=== PATIENT | female | born 1985 | race Caucasian/White ===

== ENCOUNTER 2017-11-03 22:29 | Emergency (ER) | payer SELFPAY ==
[2017-11-03 22:40] VITALS: RESP 16; O2SAT 100
[2017-11-03] MEDS ORDERED: Lidocaine 2% w Epi 1:100,000 Inj IJ STA (22:54)
--- NOTE | 2017-11-03 23:21 | C.PDOC ---
History Of Present Illness 32 year old female presents to the ER after she fell and hit her head while getting out of the elevator. Patient admits to ETOH use tonight. She reports having some nausea but denies LOC, vomiting, or other associated complaints. Time Seen by Provider: 11/03/17 22:48 Chief Complaint (Nursing): Syncope History Per: Patient History/Exam Limitations: no limitations Onset/Duration Of Symptoms: Hrs Current Symptoms Are (Timing): Still Present Recent travel outside of the [place]: No Past Medical History Reviewed: Historical Data, Nursing Documentation, Vital Signs Vital Signs: Last Vital Signs Temp 98.2 F 11/03/17 22:36 Pulse 86 11/03/17 22:36 Resp 16 11/03/17 22:36 BP 115/81 11/03/17 22:36 Pulse Ox 100 11/03/17 23:26 Family History: States: Unknown Family Hx - Social History Hx Alcohol Use: Yes Hx Substance Use: No Review Of Systems Except As Marked, All Systems Reviewed And Found Negative. Constitutional: Negative for: Fever, Chills Eyes: Negative for: Vision Change Gastrointestinal: Positive for: Nausea Musculoskeletal: Negative for: Neck Pain Skin: Positive for: Other (Laceration) Physical Exam - Physical Exam Appears: Non-toxic, Other (No acute intoxication) Skin: Warm, Dry Head: Normacephalic, Laceration (2-3cm to left parietal area with localized scalp hematoma) Eye(s): bilateral: Normal Inspection, PERRL, EOMI Oral Mucosa: Moist Neck: Normal, No Midline Cervical Tenderness, No Paracervical Tenderness, Supple Back: No Vertebral Tenderness, No Paraspinal Tenderness Extremity: Normal ROM (x4) Neurological/Psych: Oriented x3, Normal Speech Gait: Steady ED Course And Treatment O2 Sat by Pulse Oximetry: 100 (Room air) Pulse Ox Interpretation: Normal Laceration - Laceration Repair 2 Wound Length (In cm): 2 Description Of Wound: Linear, Clean Anesthesia: Lidocaine 2%, With Epi Wound Examination: Irrigated With Saline, No FB With Wound Exploration Wound Closure: [place] (2) Wound Complexity: Simple Progress - Re-Evaluation Re-evaluation Note: 11/03/17 23:26 SP LAC REPAIR. PT TOLERATED WELL. NEURO INTACT. CT PENDING 11/04/17 00:30 NEURO INTACT NAD. - Data Reviewed Data Reviewed: Diagnostic imaging Medical Decision Making Medical Decision Making: Plan: * CT head * Tylenol * Zofran Disposition Counseled Patient/Family Regarding: Studies Performed, Diagnosis, Need For Followup, Rx Given - Disposition Referrals: [facility] [Provider Group] YOUR,PMD [Other] Disposition: HOME/ ROUTINE Disposition Time: 00:30 Condition: IMPROVED Additional Instructions: RETURN 7 DAYS FOR STAPLE REMOVAL. TYLENOL, MOTRIN DIRECTED FOR PAIN. Prescriptions: Ondansetron [Zofran Odt] 4 mg PO TID PRN #9 odt PRN Reason: Nausea/Vomiting Instructions: Laceration Repair With Nell (DC), Minor Head Injury (DC) Forms: [employer] (Australian) - Clinical Impression Clinical Impression: Minor head injury, Scalp laceration - Scribe Statement The provider has reviewed the documentation as recorded by the Scribjoselyn Lucero All medical record entries made by the Scribe were at my direction and personally dictated by me. I have reviewed the chart and agree that the record accurately reflects my personal performance of the history, physical exam, medical decision making, and the department course for this patient. I have also personally directed, reviewed, and agree with the discharge instructions and disposition.
[2017-11-04 00:49] VITALS: BP 114/81; PULSE 79; TEMP 98.1
--- NOTE | 2017-11-04 07:43 | CT ---
Date of service: 11/03/2017 PROCEDURE: CT HEAD WITHOUT CONTRAST. HISTORY: trauma COMPARISON: None available. TECHNIQUE: Axial computed tomography images were obtained through the head/brain without intravenous contrast. Radiation dose: Total exam DLP = 715 mGy-cm. This CT exam was performed using one or more of the following dose reduction techniques: Automated exposure control, adjustment of the mA and/or kV according to patient size, and/or use of iterative reconstruction technique. FINDINGS: HEMORRHAGE: No intracranial hemorrhage. BRAIN: No mass effect or edema. No atrophy or chronic microvascular ischemic changes. VENTRICLES: Unremarkable. No hydrocephalus. CALVARIUM: Unremarkable. PARANASAL SINUSES: Unremarkable as visualized. No significant inflammatory changes. MASTOID AIR CELLS: Unremarkable as visualized. No inflammatory changes. OTHER FINDINGS: Left parietal scalp tessa with small hematoma. IMPRESSION: Left parietal scalp tessa with small hematoma. No acute intracranial abnormality. If symptoms persists, consider correlation with MRI. These findings were preliminarily reported at 12:15 a.m. on 11/04/[address] Rubin Clark from [facility].
== END 2017-11-04 00:49 | disposition home or self-care (01) ==
LOC: C.ER 22:29
DX: S01.01XA Laceration without foreign body of scalp, initial encounter (principal); W19.XXXA Unspecified fall, initial encounter
CPT/HCPCS: 12001; 70450; 82948; 96374; 96375; 99285; J1885; J2405

== ENCOUNTER 2018-07-05 19:29 | Inpatient (IN) | payer OTHER ==
[2018-07-05 20:05] VITALS: BMI 17.5
[2018-07-05] MEDS ORDERED: Sodium Chloride 0.9% 1,000 ML IV ONE (20:31)
--- NOTE | 2018-07-05 20:33 | C.PDOC ---
History Of Present Illness 72 year old female is referred to the ED by Dr. Lantigua and Dr Brizuela for evaluation of RUQ/epigastric abdominal pain associated with vomiting today. Patient had outpatient US today showing multiple gall stones with no obstruction and cholecystitis. Patient denies prior gallbladder surgery, fever, chills, diarrhea, CP, SOB, rash, dysuria, hematuria. Time Seen by Provider: 07/05/18 20:22 Chief Complaint (Nursing): Abdominal Pain History Per: Patient History/Exam Limitations: no limitations Onset/Duration Of Symptoms: Days Current Symptoms Are (Timing): Still Present Location Of Pain/Discomfort: RUQ, Epigastric Quality Of Discomfort: "Pain" Associated Symptoms: Nausea, Vomiting. denies: Diarrhea, Urinary Symptoms Recent travel outside of the [place]: No Additional History Per: Patient Abnormal Vaginal Bleeding: No Past Medical History Reviewed: Historical Data, Nursing Documentation, Vital Signs Vital Signs: Last Vital Signs Temp 98.2 F 07/05/18 20:07 Pulse 99 H 07/05/18 20:07 Resp 16 07/05/18 20:07 BP 119/72 07/05/18 20:07 Pulse Ox 100 07/05/18 20:07 - Medical History PMH: No Chronic Diseases Surgical History: No Surg Hx Family History: States: Unknown Family Hx - Social History Hx Alcohol Use: Yes Hx Substance Use: No Review Of Systems Constitutional: Negative for: Fever, Chills Cardiovascular: Negative for: Chest Pain Respiratory: Negative for: Shortness of Breath Gastrointestinal: Positive for: Nausea, Vomiting, Abdominal Pain. Negative for: Diarrhea Genitourinary: Negative for: Dysuria, Hematuria Musculoskeletal: Negative for: Back Pain Skin: Negative for: Rash Neurological: Negative for: Weakness, Numbness Physical Exam - Physical Exam Appears: Non-toxic, In Acute Distress (due to pain) Skin: Normal Color, Warm, Dry Head: Atraumatic, Normacephalic Eye(s): bilateral: Normal Inspection Oral Mucosa: Moist Neck: Normal ROM, Supple Chest: Symmetrical Cardiovascular: Rhythm Regular Respiratory: Normal Breath Sounds, No Rales, No Rhonchi, No Wheezing Gastrointestinal/Abdominal: Soft, Tenderness (RUQ, (+) Yao's ), No Guarding, No Rebound Extremity: Bilateral: Atraumatic, Normal Color And Temperature, Normal ROM Neurological/Psych: Oriented x3, Normal Speech, Normal Cognition Gait: Steady ED Course And Treatment - Laboratory Results Result Diagrams: 07/05/18 21:22 07/05/18 21:22 Lab Interpretation: Abnormal (LFT's [id number]/ALT 205, alk [id number]) Urine POC: Negative O2 Sat by Pulse Oximetry: 100 (ON RA) Pulse Ox Interpretation: Normal - Radiology CXR: Interpreted by Me CXR Interpretation: Yes: No Acute Disease - Other Rad abd x 2 X-Ray: Interpreted by Me (normal stool/gas pattern) - CT Scan/US US abd Other Rad Studies (CT/US): Read By Radiologist, Radiology Report Reviewed CT/US Interpretation: History. Biliary colic. Comparison. None. Technique. Sonographic evaluation of the right upper quadrant of the abdomen. Findings. Liver. Measures 15.4 cm in length. Normal echogenicity of the liver parenchyma. No mass. No intrahepatic bile duct dilatation. Gallbladder. Contracted with stones. Common bile duct. Measures 5.4 mm. No stones. No dilatation. Pancreas. Unremarkable as visualized. No mass. No ductal dilatation. Right kidney. Measures 10.8 x 3.1 x 4.1 cm in length. Normal echogenicity. No calculus, mass, or hydronephrosis. Aorta. No aneurysmal dilatation. IVC. Unremarkable. Other Findings. At the pancreatic head posterior to the CBD echogenic focus is seen possibly a calculus measuring 0.9 x 0.5 x 0.5 cm. Impre ssion. 1. Contracted gallbladder with stones. 2. At the pancreatic head posterior to the CBD echogenic focus is seen possibly a calculus measuring 0.9 x 0.5 x 0.5 cm. Consider follow up with MRCP. . Electronically signed on Jul 05, 2018 10:02:48 PM EDT by: Brian Maciel M.D., ROBERTO CARLOS Certified By ABR & CBCCT. Fellowship Trained MRI and CT Specialist. Reevaluation Time: 22:31 Reassessment Condition: Improved (d/w Surg dinesh Hill to adm to Dr. Augustin's Service, will consult with Dr. Lantigua) Medical Decision Making Medical Decision Making: Plan: * Labs * Pepcid 20 mg IVP * IV fluids * Toradol 30 mg IVP * Zofran 4 mg IVP * Obstructive series X-Ray * US abdomen * UA prob passed biliary stone with slight elev LFT's but normal bili's plan MRCP in AM consider elective lap yogesh Dr. Grzegorz BARRIGA for consult Disposition Doctor Will See Patient In The: Hospital Counseled Patient/Family Regarding: Studies Performed, Diagnosis - Disposition Disposition: HOSPITALIZED Disposition Time: 22:33 Condition: GOOD Forms: [employer] (Kazakh) - Clinical Impression Clinical Impression: Biliary colic - Scribe Statement The provider has reviewed the documentation as recorded by the Scribe Sonu Resendez All medical record entries made by the Scribe were at my direction and personally dictated by me. I have reviewed the chart and agree that the record accurately reflects my personal performance of the history, physical exam, medical decision making, and the department course for this patient. I have also personally directed, reviewed, and agree with the discharge instructions and disposition.
[2018-07-05 21:32] LABS: BASO # 0.1 K/uL (0.0-0.2); BASO % 0.9 % (0.0-2.0); EOS # 0.1 K/uL (0.0-0.7); EOS % 2.5 % (0.0-4.0); HEMOGLOBIN 12.2 g/dL (11.0-16.0); LYMPH # 1.8 K/uL (1.0-4.3); LYMPH % 31.4 % (20.0-40.0); MEAN CELL VOLUME 80.9 fL (81.0-99.0); MEAN CORPUSCULAR HEMOGLOBIN 25.1 pg (27.0-31.0); MEAN CORPUSCULAR HGB CONC 31.1 g/dL (33.0-37.0); MEAN PLATELET VOLUME 8.3 fL (7.2-11.7); MONO # 0.5 K/uL (0.0-0.8); MONO % 8.4 % (0.0-10.0); NEUT # 3.3 K/uL (1.8-7.0); NEUT % 56.8 % (50.0-75.0); NRBC % 0.2 % (0.0-2.0); RBC 4.85 Mil/uL (3.80-5.20); RED CELL DISTRIBUTION WIDTH 14.9 % (11.5-14.5); WHITE BLOOD COUNT 5.7 K/uL (4.8-10.8)
[2018-07-05 21:42] LABS: ALB/GLOB RATIO 1.3 (1.0-2.1); ALBUMIN 4.7 g/dL (3.5-5.0); ALT/SGPT 205 U/L (9-52); AST/SGOT 337 U/L (14-36); BLOOD UREA NITROGEN 6 mg/dL (7-17); CALCIUM 9.5 mg/dl (8.6-10.4); GFR NON-AFRICAN AMERICAN > 60; LIPASE 161 U/L (23-300)
[2018-07-05 22:13] LABS: HCG,QUALITATIVE URINE NEGATIVE (NEGATIVE)
[2018-07-05 22:30] LABS: SQUAMOUS EPITHIAL 1 /hpf (0-5); URINE BACTERIA OCC (<OCC); URINE BILIRUBIN NEGATIVE (NEGATIVE); URINE BLOOD 1+ (NEGATIVE); URINE CLARITY Clear (Clear); URINE COLOR Straw (YELLOW); URINE GLUCOSE (UA) NORMAL (Normal); URINE LEUKOCYTE ESTERASE NEG Leu/uL (Negative); URINE PROTEIN NEGATIVE (NEGATIVE); URINE UROBILINOGEN NORMAL mg/dL (0.2-1.0)
--- NOTE | 2018-07-05 22:35 | CP.PCM.HP ---
History of Present Illness - History of Present Illness History of Present Illness: General Surgery - Dr. Augustin 33yo F w/ no pmh who presents w/ RUQ abdominal pain x1 week. Pt states the pain began approx 1 week ago and describes it as a sharp severe pain in the RUQ and epigastric abdomen, non-radiating. The pain became progressively worse over the past 2 days. She had associated nausea and vomiting of anything she ate for the past 2 days, non-bloody/non-bilious. She denies any Fevers/chills, Diarrhea/Constipation, Dysuria/hematuria. Pt states that she saw her primary doctor Dr. Brizuela who sent her for U/S which showed gallstones. She was referred to GI Dr. Lantigua who recommended she come to the ED for evaluation. Pt states that she's never had this pain prior to this episode PMH: denies PSH: D&C NKDA Never smoked Present on Admission - Present on Admission Any Indicators Present on Admission: No Review of Systems - Review of Systems All systems: reviewed and no additional remarkable complaints except (as per hpi) Past Patient History - Past Social History Smoking Status: Never Smoked - PSYCHIATRIC Hx Substance Use: No - SURGICAL HISTORY Hx Surgeries: No - ANESTHESIA Hx Anesthesia: No Meds Allergies/Adverse Reactions: Allergies Allergy/AdvReac Type Severity Reaction Status Date / Time No Known Allergies Allergy Verified 07/05/18 20:04 Physical Exam - Constitutional Appears: Well, No Acute Distress - Head Exam Head Exam: ATRAUMATIC, NORMAL INSPECTION, NORMOCEPHALIC - Eye Exam Eye Exam: Normal appearance - Respiratory Exam Respiratory Exam: NORMAL BREATHING PATTERN. absent: Respiratory Distress - Cardiovascular Exam Cardiovascular Exam: REGULAR RHYTHM - GI/Abdominal Exam GI & Abdominal Exam: Soft, Tenderness (RUQ + Yao's ). absent: Distended, Firm, Guarding, Hernia, Rebound, Rigid - Neurological Exam Neurological exam: Alert, Oriented x3 - Psychiatric Exam Psychiatric exam: Normal Affect, Normal Mood - Skin Skin Exam: Dry, Intact Results - Vital Signs Recent Vital Signs: Last Vital Signs Temp 98.2 F 07/05/18 20:07 Pulse 99 H 07/05/18 20:07 Resp 16 07/05/18 20:07 BP 119/72 07/05/18 20:07 Pulse Ox 100 07/05/18 22:31 - Labs Result Diagrams: 07/05/18 21:22 07/05/18 21:22 Labs: Laboratory Results - last 24 hr 07/05/18 07/05/18 07/05/18 21:22 21:22 22:06 WBC 5.7 RBC 4.85 Hgb 12.2 Hct 39.2 MCV 80.9 L MCH 25.1 L MCHC 31.1 L RDW 14.9 H Plt Count 423 H MPV 8.3 Neut % (Auto) 56.8 Lymph % (Auto) 31.4 [place] % (Auto) 8.4 Eos % (Auto) 2.5 Baso % (Auto) 0.9 Neut # (Auto) 3.3 Lymph # (Auto) 1.8 [place] # (Auto) 0.5 Eos # (Auto) 0.1 Baso # (Auto) 0.1 Sodium 140 Potassium 3.6 Chloride 103 Carbon Dioxide 25 Anion Gap 15 BUN 6 L Creatinine 0.5 L Est GFR ( Amer) > 60 Est GFR (Non-Af Amer) > 60 Random Glucose 97 Calcium 9.5 Total Bilirubin 1.0 AST 337 H ALT 205 H Alkaline Phosphatase 158 H Total Protein 8.2 Albumin 4.7 Globulin 3.5 Albumin/Globulin Ratio 1.3 Lipase 161 Urine HCG, Qual Negative - Imaging and Cardiology US - abdomen Status: Image reviewed by me, Report reviewed by me (gallstones within contracted gallbladder, questionable calculus in pancreatic head) Assessment & Plan - Assessment and Plan (Free Text) Assessment: 33 yo F w/ acute cholecystitis -Admit to surgical service -NPO, IVF, IV abx -Pain control and Anti-emetics prn -GI consult for Dr. Lantigua -F/U LFTs in AM -Will consider MRCP pending labs and official U/S read -Plan for OR for Lap yogesh tomorrow DW Dr Charli Cota PGY4
[2018-07-05] MEDS ORDERED: Lactated Ringer's 1,000 ML ONE (23:14)
[2018-07-05] MEDS ORDERED: metroNIDAZOLE IV 500 mg/100 ml 500 MG/100 ML BAG ONE (23:14)
[2018-07-05] MEDS: metroNIDAZOLE IV 500 mg/100 ml 500 MG/100 ML BAG IVPB SCH (23:22)
[2018-07-05] MEDS: Lactated Ringer's 1,000 ML IV SCH (23:22)
[2018-07-06] MEDS: Ciprofloxacin 400mg/200ml D5W 400 MG/200 ML BAG IVPB SCH ×2 (01:08→11:22)
[2018-07-06] MEDS: Lactated Ringer's 1,000 ML IV SCH ×3 (06:09→19:11)
[2018-07-06] MEDS: metroNIDAZOLE IV 500 mg/100 ml 500 MG/100 ML BAG IVPB SCH ×3 (06:09→22:18)
[2018-07-06 07:14] LABS: BASO % 0.7 % (0.0-2.0); EOS # 0.2 K/uL (0.0-0.7); EOS % 3.5 % (0.0-4.0); HEMOGLOBIN 10.9 g/dL (11.0-16.0); LYMPH # 1.5 K/uL (1.0-4.3); LYMPH % 27.6 % (20.0-40.0); MEAN CELL VOLUME 81.2 fL (81.0-99.0); MEAN CORPUSCULAR HEMOGLOBIN 25.9 pg (27.0-31.0); MEAN CORPUSCULAR HGB CONC 31.9 g/dL (33.0-37.0); MEAN PLATELET VOLUME 7.8 fL (7.2-11.7); MONO # 0.5 K/uL (0.0-0.8); MONO % 9.8 % (0.0-10.0); NEUT # 3.1 K/uL (1.8-7.0); NEUT % 58.4 % (50.0-75.0); NRBC % 0.1 % (0.0-2.0); RBC 4.21 Mil/uL (3.80-5.20); WHITE BLOOD COUNT 5.4 K/uL (4.8-10.8)
[2018-07-06 07:22] LABS: INR 1.1; PROTHROMBIN TIME 12.4 SECONDS (9.7-12.2)
[2018-07-06 07:46] LABS: ALB/GLOB RATIO 1.3 (1.0-2.1); ALBUMIN 3.8 g/dL (3.5-5.0); ALT/SGPT 157 U/L (9-52); AST/SGOT 198 U/L (14-36); BLOOD UREA NITROGEN 5 mg/dL (7-17); CALCIUM 8.6 mg/dl (8.6-10.4); GFR NON-AFRICAN AMERICAN > 60
--- NOTE | 2018-07-06 07:55 | CP.PCM.PN ---
Subjective - Date & Time of Evaluation Date of Evaluation: 07/06/18 Time of Evaluation: 07:00 - Subjective Subjective: GENERAL SURGERY PROGRESS NOTE FOR DR. MARTINEZ Patient seen and examined at bedside. She reports some mild abdominal pain. No nausea or vomiting. Remains NPO for MRCP and possible OR. Objective - Vital Signs/Intake and Output Vital Signs (last 24 hours): Temp Pulse Resp BP Pulse Ox 98.2 F 68 18 112/66 97 07/06/18 00:28 07/06/18 00:28 07/06/18 00:28 07/06/18 00:28 07/06/18 00:28 Intake and Output: 07/06/18 07/06/18 06:59 18:59 Intake Total 800 Balance 800 - Medications Medications: Current Medications Lactated Ringer's (Lactated Ringer's) 1,000 mls @ 100 mls/hr IV .Q10H CLEO Last Admin: 07/06/18 06:09 Dose: 100 mls/hr Ciprofloxacin (Cipro 400mg/200ml Dsw) 400 mg in 200 mls @ 133 mls/hr IVPB Q12H CLEO; Protocol Last Admin: 07/06/18 01:08 Dose: 133 mls/hr Metronidazole (Flagyl) 500 mg in 100 mls @ 100 mls/hr IVPB Q8H CLEO; Protocol Last Admin: 07/06/18 06:09 Dose: 100 mls/hr Ketorolac Tromethamine (Toradol) 15 mg IVP Q6 PRN PRN Reason: Pain, severe (8-10) Morphine Sulfate (Morphine) 2 mg IVP Q4H PRN PRN Reason: Pain, moderate (4-7) Last Admin: 07/06/18 01:14 Dose: 2 mg Ondansetron HCl (Zofran Inj) 4 mg IVP Q4 CLEO Last Admin: 07/06/18 00:27 Dose: Not Given Pneumococcal Polyvalent Vaccine (Pneumovax 23 Vaccine) 0.5 ml IM .ONCE ONE Stop: 07/06/18 10:01 - Labs Labs: 07/06/18 07:07 07/06/18 07:07 PT 12.4 SECONDS (9.7-12.2) H 07/06/18 07:07 INR 1.1 07/06/18 07:07 APTT 32 SECONDS (21-34) 07/06/18 07:07 - Constitutional Appears: Well, Non-toxic, No Acute Distress - Head Exam Head Exam: ATRAUMATIC, NORMAL INSPECTION - Eye Exam Eye Exam: EOMI, Normal appearance - Respiratory Exam Respiratory Exam: NORMAL BREATHING PATTERN. absent: Respiratory Distress - Cardiovascular Exam Cardiovascular Exam: +S1, +S2 - GI/Abdominal Exam GI & Abdominal Exam: Soft, Tenderness (tender in epigastric area). absent: Distended, Firm, Guarding, Rigid, Rebound - Neurological Exam Neurological Exam: Alert, Awake, Oriented x3 - Psychiatric Exam Psychiatric exam: Normal Affect, Normal Mood - Skin Skin Exam: Dry, Normal Color, Warm Assessment and Plan - Assessment and Plan (Free Text) Assessment: 33yo F with cholelithiasis, possible cholecystitis, rule out choledocholithiasis - Afebrile, VSS - No leukocytosis - Bilirubin WNL, LFTs remain elevated but trending down from yesterday - MRCP ordered due to possible pancreatic head stone seen on US. MRCP showed no choledocholithiasis, contracted gallbladder with gallstones and diffuse wall thickening - Plan for OR tomorrow for lap yogesh - Discussed plan with Dr. Charli Dodson PGY-4
--- NOTE | 2018-07-06 09:31 | RAD ---
Abdominal series three views History: Abdominal pain. COMPARISON: None available. FINDINGS: Moderate fecal retention in the colon. Few lobulated radiopaque/calcific densities project over the right rita abdomen. Correlation with noncontrast CT scan may be helpful if clinically indicated. Calcified phleboliths in the pelvis. Degenerative changes in the spine. Biapical pleural thickening with upper lobe granulomatous changes in the lung nice. Heart size within normal limits. Impression: Moderate fecal retention in the colon. Few lobulated radiopaque/calcific densities project over the right rita abdomen. Correlation with noncontrast CT scan may be helpful if clinically indicated.
[2018-07-06] MEDS ORDERED: Pneumococcal 23-Valent Vaccine IM ONE (10:00)
--- NOTE | 2018-07-06 10:35 | US ---
Date of service: 07/05/2018 HISTORY: biliary colic COMPARISON: None. TECHNIQUE: Grayscale imaging was performed. FINDINGS: LIVER: Measures 15.4 cm in length. Normal echogenicity of the liver parenchyma. No mass. No intrahepatic bile duct dilatation. GALLBLADDER: The gallbladder is contracted. There are multiple gallstones. No evidence of gallbladder wall thickening, pericholecystic fluid or positive sonographic Yao's sign. COMMON BILE DUCT: Measures 5.4 mm. Mild diffuse dilatation. There is an apparent 9 x 5 mm echogenic focus in the distal common bile duct. PANCREAS: Unremarkable as visualized. No mass. No ductal dilatation. RIGHT KIDNEY: Measures 10.8 cm in length. Normal echogenicity. No calculus, mass, or hydronephrosis. AORTA: No aneurysmal dilatation. IVC: Unremarkable. OTHER FINDINGS: None . IMPRESSION: Cholelithiasis. Contracted gallbladder. Apparent 9 x 5 mm stone in the distal common bile duct. Please correlate with MRCP. A preliminary report was provided by [employer].
--- NOTE | 2018-07-06 10:40 | MRI ---
Date of service: 07/06/2018 PROCEDURE: Magnetic Resonance Cholangiopancreatography HISTORY: Evaluate for choledocholithiasis. COMPARISON: Comparison is made with the previous ultrasound gallbladder dated 07/05/2018 TECHNIQUE: Multiplanar, multisequence MR images of the abdomen were obtained, including heavily T2 weighted MRCP images of the biliary system. Rotating maximum intensity projection images of the biliary system were generated. FINDINGS: MRCP: The common bile duct is of a normal caliber. No evidence of choledocholithiasis. No intrahepatic biliary ductal dilatation. LIVER: Unremarkable. GALLBLADDER: Contracted contains gallstones and demonstrate diffuse wall thickening. SPLEEN: Unremarkable. PANCREAS: Unremarkable. ADRENALS: Unremarkable. KIDNEYS: Unremarkable. AORTA: No aneurysm. ASCITES: None. OTHER FINDINGS: None. IMPRESSION: Suboptimal study degraded by motion artifact. No evidence of choledocholithiasis. Contracted gallbladder contains gallstones and demonstrate diffuse wall thickening.
[2018-07-07] MEDS: Ciprofloxacin 400mg/200ml D5W 400 MG/200 ML BAG IVPB SCH ×2 (00:44→12:26)
[2018-07-07] MEDS: Lactated Ringer's 1,000 ML IV SCH ×2 (05:53→14:38)
[2018-07-07] MEDS: metroNIDAZOLE IV 500 mg/100 ml 500 MG/100 ML BAG IVPB SCH ×3 (06:03→23:12)
[2018-07-07 08:21] LABS: BASO % 0.7 % (0.0-2.0); EOS # 0.2 K/uL (0.0-0.7); EOS % 3.2 % (0.0-4.0); LYMPH # 1.2 K/uL (1.0-4.3); MEAN CELL VOLUME 80.7 fL (81.0-99.0); MEAN CORPUSCULAR HEMOGLOBIN 26.5 pg (27.0-31.0); MEAN CORPUSCULAR HGB CONC 32.8 g/dL (33.0-37.0); MEAN PLATELET VOLUME 8.1 fL (7.2-11.7); MONO # 0.5 K/uL (0.0-0.8); MONO % 9.8 % (0.0-10.0); NEUT # 3.1 K/uL (1.8-7.0); NEUT % 62.3 % (50.0-75.0); RBC 4.14 Mil/uL (3.80-5.20); RED CELL DISTRIBUTION WIDTH 14.8 % (11.5-14.5)
[2018-07-07 08:34] LABS: ALB/GLOB RATIO 1.3 (1.0-2.1); ALBUMIN 3.7 g/dL (3.5-5.0); ALT/SGPT 131 U/L (9-52); AST/SGOT 162 U/L (14-36); BLOOD UREA NITROGEN 4 mg/dL (7-17); GFR NON-AFRICAN AMERICAN > 60
[2018-07-07] MEDS ORDERED: Midazolam 2 MG/2 ML VIAL ONE (09:50)
[2018-07-07] MEDS ORDERED: Propofol 10 mg/ml Inj (20 ML) ONE (09:50)
[2018-07-07] MEDS ORDERED: Succinylcholine Chloride 20 mg/ml Syr (5 ml) IV ONE (09:54)
[2018-07-07] MEDS: Bupivacaine-Epi 0.5%-1:200,000 PF Inj ONE ×2 (09:57→13:46)
[2018-07-07] MEDS ORDERED: Rocuronium 10 mg/ml (5 ml) ONE (09:57)
[2018-07-07] MEDS ORDERED: Neostigmine 1:1000 (1 mg/ml) Inj ONE (10:22)
[2018-07-07] MEDS ORDERED: HYDROmorphone 0.5 mg/0.5 ml ISec IVP PRN (10:42)
[2018-07-07] MEDS ORDERED: Oxycodone/Acetaminophen 5/325 mg Tab PO PRN (10:44)
--- NOTE | 2018-07-07 10:44 | PCM.SURG1 ---
Surgeon's Initial Post Op Note - Surgeon's Notes Surgeon: MD Charli Activities Attendant: Brayan PGY3 Pre-Operative Diagnosis: Acute Cholecystitis Operative Findings: Inflammed gallbladder Post-Operative Diagnosis: Acute cholecystitis Operation Performed: Laparoscopic cholecystectomy Specimen/Specimens Removed: Gallbladder Estimated Blood Loss: EBL {In ML}: 5 Date of Surgery/Procedure: 07/07/18 Time of Surgery/Procedure: 10:00
[2018-07-07] MEDS ORDERED: Lactated Ringer's 1,000 ML IV ONE (11:50)
--- NOTE | 2018-07-07 12:04 | CP.PCM.DIS ---
Provider - Provider Date of Admission: 07/05/18 22:34 Attending physician: Angel Augustin MD Time Spent in preparation of Discharge (in minutes): 40 Hospital Course - Lab Results Lab Results: Most Recent Lab Values WBC 5.0 K/uL (4.8-10.8) 07/07/18 08:12 RBC 4.14 Mil/uL (3.80-5.20) 07/07/18 08:12 Hgb 11.0 g/dL (11.0-16.0) 07/07/18 08:12 Hct 33.4 % (34.0-47.0) L 07/07/18 08:12 MCV 80.7 fL (81.0-99.0) L 07/07/18 08:12 MCH 26.5 pg (27.0-31.0) L 07/07/18 08:12 MCHC 32.8 g/dL (33.0-37.0) L 07/07/18 08:12 RDW 14.8 % (11.5-14.5) H 07/07/18 08:12 Plt Count 346 K/uL (130-400) 07/07/18 08:12 MPV 8.1 fL (7.2-11.7) 07/07/18 08:12 Neut % (Auto) 62.3 % (50.0-75.0) 07/07/18 08:12 Lymph % (Auto) 24.0 % (20.0-40.0) 07/07/18 08:12 [place] % (Auto) 9.8 % (0.0-10.0) 07/07/18 08:12 Eos % (Auto) 3.2 % (0.0-4.0) 07/07/18 08:12 Baso % (Auto) 0.7 % (0.0-2.0) 07/07/18 08:12 Neut # (Auto) 3.1 K/uL (1.8-7.0) 07/07/18 08:12 Lymph # (Auto) 1.2 K/uL (1.0-4.3) 07/07/18 08:12 [place] # (Auto) 0.5 K/uL (0.0-0.8) 07/07/18 08:12 Eos # (Auto) 0.2 K/uL (0.0-0.7) 07/07/18 08:12 Baso # (Auto) 0.0 K/uL (0.0-0.2) 07/07/18 08:12 PT 12.4 SECONDS (9.7-12.2) H 07/06/18 07:07 INR 1.1 07/06/18 07:07 APTT 32 SECONDS (21-34) 07/06/18 07:07 Sodium 135 mmol/L (132-148) 07/07/18 08:12 Potassium 3.8 mmol/L (3.6-5.2) 07/07/18 08:12 Chloride 102 mmol/L (98-107) 07/07/18 08:12 Carbon Dioxide 26 mmol/L (22-30) 07/07/18 08:12 Anion Gap 10 (10-20) 07/07/18 08:12 BUN 4 mg/dL (7-17) L 07/07/18 08:12 Creatinine 0.6 mg/dL (0.7-1.2) L 07/07/18 08:12 Est GFR ( Amer) > 60 07/07/18 08:12 Est GFR (Non-Af Amer) > 60 07/07/18 08:12 Random Glucose 86 mg/dL (65-105) 07/07/18 08:12 Calcium 9.0 mg/dl (8.6-10.4) 07/07/18 08:12 Phosphorus 3.7 mg/dL (2.5-4.5) 07/07/18 08:12 Magnesium 1.7 mg/dL (1.6-2.3) 07/07/18 08:12 Total Bilirubin 0.8 mg/dL (0.2-1.3) 07/07/18 08:12 AST 162 U/L (14-36) H 07/07/18 08:12 ALT 131 U/L (9-52) H 07/07/18 08:12 Alkaline Phosphatase 132 U/L (38-126) H 07/07/18 08:12 Total Protein 6.4 g/dL (6.3-8.3) 07/07/18 08:12 Albumin 3.7 g/dL (3.5-5.0) 07/07/18 08:12 Globulin 2.7 gm/dL (2.2-3.9) 07/07/18 08:12 Albumin/Globulin Ratio 1.3 (1.0-2.1) 07/07/18 08:12 Lipase 161 U/L (23-300) 07/05/18 21:22 Beta HCG, Quant < 2.39 mIU/ML 07/06/18 07:07 Urine Color Straw (YELLOW) 07/05/18 22:06 Urine Clarity Clear (Clear) 07/05/18 22:06 Urine pH 8.0 (5.0-8.0) 07/05/18 22:06 Ur Specific [place] 1.002 (1.003-1.030) L 07/05/18 22:06 Urine Protein Negative mg/dL (NEGATIVE) 07/05/18 22:06 Urine Glucose (UA) Normal mg/dL (Normal) 07/05/18 22:06 Urine Ketones Negative mg/dL (NEGATIVE) 07/05/18 22:06 Urine Blood 1+ (NEGATIVE) H 07/05/18 22:06 Urine Nitrate Negative (NEGATIVE) 07/05/18 22:06 Urine Bilirubin Negative (NEGATIVE) 07/05/18 22:06 Urine Urobilinogen Normal mg/dL (0.2-1.0) 07/05/18 22:06 Ur Leukocyte Esterase Neg [place]/uL (Negative) 07/05/18 22:06 Urine WBC (Auto) < 1 /hpf (0-5) 07/05/18 22:06 Urine RBC (Auto) 1 /hpf (0-3) 07/05/18 22:06 Ur Squamous Epith Cells 1 /hpf (0-5) 07/05/18 22:06 Urine Bacteria Occ (<OCC) H 07/05/18 22:06 Urine HCG, Qual Negative (NEGATIVE) 07/05/18 22:06 Blood Type O NEGATIVE 07/06/18 07:07 Antibody Screen Negative 07/06/18 07:07 - Hospital Course Hospital Course: 33F presents with cholecystitis and elevated AST/ALT with normal T.Bili. Patient underwent MRCP which was negative for choledocholithiasis. Patient underwent lap cholecystectomy which was uneventful. Patient doing well post op. Discharge Exam - Head Exam Head Exam: ATRAUMATIC, NORMAL INSPECTION - Respiratory Exam Respiratory Exam: Clear to PA & Lateral, NORMAL BREATHING PATTERN - Cardiovascular Exam Cardiovascular Exam: REGULAR RHYTHM, +S1, +S2 - GI/Abdominal Exam GI & Abdominal Exam: Soft, Tenderness (mildly). absent: Distended, Firm, Guarding, Rebound, Rigid Additional comments: incision CDI - Neurological Exam Neurological exam: Alert - Skin Skin Exam: Dry, Intact, Normal Color, Warm Discharge Plan - Discharge Medications Prescriptions: oxyCODONE/Acetaminophen [Percocet 5/325 mg Tab] 1 tab PO Q4 PRN #20 tab PRN Reason: Pain, Severe (8-10) - Follow Up Plan Condition: GOOD Disposition: HOME/ ROUTINE Instructions: Cholecystectomy, Laparoscopic Surgery Additional Instructions: 1) Please follow up with Dr. Augustin outpatient in one week, Monday 2) May shower but do not bath 3) Continue home diet as usual 4) Take prescriptions as directed 5) Recommend no heavy lifting of more than 10-20lb for 4 weeks Referrals: Angel Augustin MD [Staff Provider] -
[2018-07-08] MEDS: Ciprofloxacin 400mg/200ml D5W 400 MG/200 ML BAG IVPB SCH ×2 (00:28→13:32)
[2018-07-08 01:27] VITALS: RESP 20
[2018-07-08] MEDS: Lactated Ringer's 1,000 ML IV SCH ×2 (01:39→06:51)
--- NOTE | 2018-07-08 05:06 | OP ---
PROCEDURE DATE: 07/07/2018 PREOPERATIVE DIAGNOSIS: Acute cholecystitis. POSTOPERATIVE DIAGNOSIS: Acute cholecystitis. SURGEON: Angel Augustin MD PROFESSOR OF RADIOLOGY: Regulo Schmidt, PGY3 OPERATION PERFORMED: Laparoscopic cholecystectomy. ANESTHESIOLOGIST: Jarocho Monroe DO ANESTHESIA: General. ESTIMATED BLOOD LOSS: 5 mL. DESCRIPTION OF PROCEDURE: Upon sedation and intubation, the patient's abdomen was prepped and draped in the usual sterile fashion. An infraumbilical incision was made vertically, enough to fit an 11-mm trocar. A Veress needle was used to enter the abdomen via the umbilical incision. Entering pressure was 1 mmHg. Abdomen was insufflated until a pressure of 15 mmHg. Upon insufflation, abdomen was entered using a Visiport technique where the camera is within the trocar and abdomen is entered with direct visualization. Upon entering the abdominal space, camera was used to inspect the gallbladder and its surroundings. It was noted that the liver wall was adhered to the abdominal wall and the gallbladder had multiple adhesions surrounding it. Two more trocars were placed, both 5 mm, one subxiphoid and another one to the right subcostally. Grasper was used to grasp the fundus of the gallbladder and dissector was used to start dissecting the gallbladder at the triangle of Calot. Dissection started with peeling off the peritoneum away from the lower part of the gallbladder in order to expose the cystic duct. Dissection was done until the cystic duct was identified and skeletonized. Posteriorly, cystic artery was seen directly entering into the gallbladder which was also skeletonized. Upon skeletonizing both the cystic duct and the cystic artery, laparoscopic clips were placed, one proximally on the cystic duct towards the gallbladder and two distally on the cystic duct. Laparoscopic scissors were used to transect the cystic duct in between. Two clips were also placed in the cystic artery distally and one proximally and also laparoscopic scissors were used to transect the cystic artery. Upon transection of both cystic duct and cystic artery, electrocautery was used to dissect the gallbladder off of the liver bed. Care was taken to minimize any bleeding. Any bleeding was taken care of with electrocautery. Gallbladder was placed in the EndoCatch bag and removed through the umbilical incision under direct visualization. Gallbladder fossa was irrigated and suctioned until clear fluid was seen coming out of the suction tubing. Trocars were removed upon direct visualization. The abdomen was deflated and the infra-abdominal fascia incision was closed using a 0 Vicryl stitch in a [id number] manner. All the three incisions were closed with 4-0 Monocryls at the skin level. Dermabond was used as topical dressing. The patient tolerated the procedure well and was awakened from anesthesia and transported to the postoperative anesthesia care unit. There were no complications. Estimated blood loss was 5 mL. Regulo Schmidt DO Angel Augustin MD DEMET[facility]O
[2018-07-08] MEDS: metroNIDAZOLE IV 500 mg/100 ml 500 MG/100 ML BAG IVPB SCH (06:48)
[2018-07-08 09:17] VITALS: BP 97/60; PULSE 87; TEMP 98.2; O2SAT 99
[2018-07-08 09:21] LABS: HEMOGLOBIN 10.8 g/dL (11.0-16.0); MEAN CELL VOLUME 80.9 fL (81.0-99.0); MEAN CORPUSCULAR HGB CONC 32.1 g/dL (33.0-37.0); MEAN PLATELET VOLUME 8.1 fL (7.2-11.7); RBC 4.17 Mil/uL (3.80-5.20); RED CELL DISTRIBUTION WIDTH 14.4 % (11.5-14.5); WHITE BLOOD COUNT 8.6 K/uL (4.8-10.8)
[2018-07-08 09:37] LABS: ALB/GLOB RATIO 1.3 (1.0-2.1); ALBUMIN 3.8 g/dL (3.5-5.0); ALT/SGPT 121 U/L (9-52); AST/SGOT 181 U/L (14-36); BLOOD UREA NITROGEN 5 mg/dL (7-17); CALCIUM 8.8 mg/dl (8.6-10.4); GFR NON-AFRICAN AMERICAN > 60
[2018-07-08] MEDS ORDERED: Potassium Chloride 10 mEq ER Tab PO ONE (10:45)
[2018-07-09] MEDS ORDERED: Potassium Chloride 10 mEq ER Tab PO ONE (09:42)
== END 2018-07-08 13:33 | disposition home or self-care (01) | DRG 263 ==
LOC: C.ER 19:29 → C.6T 22:34
PROVIDERS: ADMIT Surgery; ATTEND Surgery
PROC: 0FT44ZZ Resection of Gallbladder, Percutaneous Endoscopic Approach (ICD-10-PCS; principal; 2018-07-07 12:00)
DX: K80.10 Calculus of gallbladder with chronic cholecystitis without obstruction (principal)